=== PATIENT | male | born 1955 | race Caucasian/White ===

== ENCOUNTER 2018-01-22 18:17 | Emergency (ER) | payer OTHER ==
[~2018-01-22] VITALS: Ht 182.9 cm; Wt 111.1 kg
[~2018-01-22 18:17] MED LIST: ANTIDEPRESSANT; ARIXTRA SQ; ASPIRIN325 PO; AUGMENTIN 875-1 EACH PO; CRESTOR10 MG PO; DIOVAN HCT 1601 EAC1 PO; HYDROCODONE-AP1 EAC6 PO; OXYCONTIN10 M1 PO; OXYIR5 MG PO; STOOL SOFTENER1 EAC2 PO
[2018-01-22] MEDS ORDERED: CELEXA 10 MG TA10 M1 PO (18:30)
[2018-01-22] MEDS ORDERED: SINGULAIR 10 MG10 M1 PO (18:30)
[2018-01-22 18:41] LABS: ABSOLUTE BASOPHILS 0.1 thou/uL (0.0-0.2); ABSOLUTE EOSINOPHILS 0.1 thou/uL (0.0-0.7); ABSOLUTE LYMPHOCYTES 2.3 thou/uL (0.8-5.3); ABSOLUTE MONOCYTES 0.7 thou/uL (0.0-1.2); ABSOLUTE NEUTROPHILS 3.2 thou/uL (1.6-8.1); BASOPHILS 0.9 %; EOSINOPHILS 2.3 %; HEMATOCRIT 36.9 % (42.0-52.0); HEMOGLOBIN 13.1 gm/dL (14.0-18.0); LYMPHOCYTES 35.6 %; MCH 37.3 pg (26.0-34.0); MCHC 35.6 g/dL (28.0-37.0); MCV 104.9 fL (80.0-100.0); MPV 7.1 fl. (7.2-11.1); NUCLEATED RBCS 0 /100WBC; PLATELET COUNT* 197 thou/uL (150-400); POLYS 50.2 %; RBC 3.52 mil/uL (4.50-6.00); WBC 6.4 thou/uL (4.0-11.0)
[2018-01-22 18:50] LABS: ANION GAP 8 mmol/L (7-16); BUN 18 mg/dL (7-18); CALCIUM 8.3 mg/dL (8.5-10.1); CHLORIDE 106 mmol/L (98-107); CO2 26 mmol/L (21-32); CREATININE 0.9 mg/dL (0.6-1.3); GLUCOSE 103 mg/dL (70-99); SODIUM 140 mmol/L (136-145)
[2018-01-22 18:57] LABS: ALBUMIN 3.8 g/dL (3.4-5.0); ALKALINE PHOSPHATASE 95 U/L (46-116); LIPASE 134 U/L (73-393); SGOT 16 U/L (15-37); SGPT 29 U/L (30-65); TOTAL BILIRUBIN 0.6 mg/dL (<0.1-1.0); TROPONIN-I LEVEL <0.06 ng/mL (<0.06)
[2018-01-22 20:55] VITALS: BP 138/78
--- NOTE | 2018-01-23 10:07 | EKG ---
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1955 Requested By: Dannielle Preciado Order Number: [id number] MD: Aly Ortiz Measurements Intervals [place] Rate: 61 P: -28 ND: 184 QRS: -19 QRSD: 119 T: 6 QT: 425 QTc: 428 Interpretive Statements Sinus rhythm Incomplete right bundle branch block Compared to ECG 03/10/2011 12:37:17 Incomplete right bundle-branch block now present Electronically Signed On 01-23-2018 10:07:19 CDT by Aly Ortiz [email or web address] <ELECTRONICALLY SIGNED> By: Aly Ortiz MD, [facility] 01/23/18 1007 D: [id number] Aly Ortiz MD, FACC /EPI
== END 2018-01-22 20:56 | disposition home or self-care (01) ==
LOC: M.ERS 18:17
PROVIDERS: Personal Emergency Response Attendant
DX: R07.89 Other chest pain (principal); I10 Essential (primary) hypertension; Z87.442 Personal history of urinary calculi; Z96.653 Presence of artificial knee joint, bilateral; Z87.891 Personal history of nicotine dependence

== ENCOUNTER → 2019-04-08 | Outpatient (CLI) | payer OTHER ==
[~2019-04-08] MED LIST changes: +CELEXA 10 MG TA10 M1 PO; +SINGULAIR 10 MG10 M1 PO
--- NOTE | 2019-04-11 15:27 | SLEEP ---
[address] [address] SLEEP STUDY REPORT Name: SRINIVASA CORONA Room: [facility]#: [id number] Admission: 04/08/19 Attend Phys: Carmella Tijerina Discharge: Date of : 53 Report #: [id number] THIS REPORT FOR: //name// CC: Brandon Reddy DO This study has been reviewed in its entirety by a board certified sleep specialist DATE OF SERVICE: 04/08/2019 SLEEP STUDY ATTENDING PHYSICIAN: Brandon Reddy DO The patient is a 63-year-old who weighs 245 pounds with a BMI of 34. The patient's Hellier score was 12. Review of medications revealed use of escitalopram. The patient underwent a diagnostic study performed in [facility]. During the night study, the patient spent 466 minutes in bed and slept for 344 minutes with a sleep efficiency of 73%, which is low. Sleep latency was 41.7 minutes, which was prolonged with a REM latency of 156 minutes. Overall, sleep architecture showed normal stage 1 and stage 2 sleep, increased slow wave and increased REM sleep. During the night of study, the patient had 4 obstructive apneas, no mixed or central apneas and there were 21 hypopneas. The patient's apnea hypopnea index was 4.4 per hour with a REM index of 5.3 per hour and a supine index of 2 per hour. EKG monitoring revealed normal sinus rhythm. Average heart rate of 63 beats per minute. No sustained arrhythmias observed. PLMS were seen at an index of 56 per hour and 8 per hour caused EEG arousals. Nocturnal oximetry study revealed an average oxygen saturation of 95% with a lowest of 90%. No clinically significant desaturation of less than 90% observed. Due to low AHI, the patient did not meet the split night criteria for CPAP initiation. IMPRESSION: 1. No clinically significant sleep disordered breathing. The patient's AHI for the entire night was 4.4 [place] [address] SLEEP STUDY REPORT Name: SRINIVASA CORONA Room: [facility]#: [id number] Admission: 04/08/19 Attend Phys: Carmella Tijerina Discharge: Date of : 53 Report #: [id number] 2. Reduced sleep efficiency resulting from sleep onset and sleep maintenance insomnia. 3. 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 RECOMMENDATIONS: 1. The patient did not meet the split night criteria for CPAP initiation due to low AHI. 2. The patient's sleep efficiency was reduced from sleep onset and sleep maintenance insomnia. If this is a chronic condition, it can contribute to the patient's daytime sleepiness and it should be further evaluated and treated according to the etiology. 3. The patient had severe PLMS which also resulted in sleep disruption. It can also contribute to daytime sleepiness and if the patient is clinically symptomatic, it can be treated with dopaminergic agonist agents. The patient should also be further evaluated for symptoms of restless legs during the day. 4. Avoid [employer] depressants. 5. Cautioned regarding driving until the patient's hypersomnia is resolved with the above recommendations. <ELECTRONICALLY SIGNED> By: Dustin Fine MD 04/11/19 1527 [id number] [id number] Faina Fine MD /nt
== END ==
LOC: M.SLEEPLAB 19:57
DX: G47.30 Sleep apnea, unspecified (principal); G47.8 Other sleep disorders; R53.82 Chronic fatigue, unspecified; I10 Essential (primary) hypertension

== ENCOUNTER 2019-11-17 23:17 | Emergency (ER) | payer OTHER ==
[~2019-11-17] VITALS: Ht 180.3 cm; Wt 104.3 kg
[2019-11-18 02:35] VITALS: BP 125/84
== END 2019-11-18 02:35 | disposition home or self-care (01) ==
LOC: M.ERS 23:17
DX: S01.81XA Laceration without foreign body of other part of head, initial encounter (principal); S05.11XA Contusion of eyeball and orbital tissues, right eye, initial encounter; I10 Essential (primary) hypertension; Z87.442 Personal history of urinary calculi; Z87.891 Personal history of nicotine dependence; W10.8XXA Fall (on) (from) other stairs and steps, initial encounter; Y93.89 Activity, other specified; Y92.89 Other specified places as the place of occurrence of the external cause; Y99.8 Other external cause status

== ENCOUNTER → 2020-06-10 | Outpatient (CLI) | payer OTHER | LOC: M.LAB 09:53 | PROVIDERS: ATTEND Internal Medicine Gastroenterology | DX: Z01.812 Encounter for preprocedural laboratory examination (principal); Z20.828 Contact with and (suspected) exposure to other viral communicable diseases; Z12.11 Encounter for screening for malignant neoplasm of colon ==